=== PATIENT | female | born 1960 | race African-American/Black ===

== ENCOUNTER 2024-11-16 10:53 | Emergency (ER) | payer MEDICAID ==
[~2024-11-16] VITALS: Ht 165.1 cm; Wt 66.0 kg
[2024-11-16 10:54] VITALS: BP 118/72; PULSE 74; RESP 16; TEMP 98.7; O2SAT 96
[2024-11-16 11:45] LABS: BASOPHILS % 0.8 % (0.0-2.0); EOSINOPHILS % 0.5 % (0.0-5.0); HEMATOCRIT. 35.2 % (36.0-48.0); HEMOGLOBIN. 12.2 g/dL (12.0-16.0); LYMPHOCYTES % 40.6 % (20.0-50.0); MEAN CORPUSCULAR HEMOGLOBIN 31.5 pg (28.0-32.0); MEAN CORPUSCULAR HGB CONC 34.7 g/dL (31.0-37.0); MEAN CORPUSCULAR VOLUME 90.7 fL (81.0-99.0); MEAN PLATELET VOLUME 7.5 fl (7.4-10.4); MONOCYTES % 10.9 % (2.0-8.0); NEUTROPHILS % 47.2 % (40.0-76.0); PLATELET 247 x1000/uL (130-400); RED BLOOD CELL COUNT 3.88 mill/uL (4.2-5.4); RED CELL DISTRIBUTION WIDTH 14.7 % (11.6-14.6); WHITE BLOOD COUNT 5.8 x1000/uL (4.5-11.0)
[2024-11-16 12:00] LABS: CHLORIDE 93 mEq/L (98-107); SODIUM 136 mEq/L (136-145)
[2024-11-16 12:01] LABS: CALCIUM 10.9 mg/dL (8.7-10.4); CARBON DIOXIDE 33 mEq/L (21-32)
[2024-11-16 12:06] LABS: CREATININE 1.9 mg/dL (0.6-1.0); GLUCOSE 121 mg/dL (70-105); UREA NITROGEN BLOOD 29 mg/dL (9-23)
[2024-11-16 12:08] LABS: TROPONIN I HIGH SENSITIVITY 17 ng/L (3.0-34)
[2024-11-16 12:34] LABS: POTASSIUM 2.4 mEq/L (3.5-5.1)
[2024-11-16] MEDS ORDERED: POTASSIUM CHLORIDE 30 MEQ in DEXT 5%/0.9% NACL 985 ML IV SCH (12:45)
[2024-11-16] MEDS ORDERED: POTASSIUM CHLORIDE 20MEQ TABLET SR PO SCH (12:45)
== END 2024-11-16 12:56 | disposition left against medical advice (07) ==
LOC: ER 10:53
DX: R55 Syncope and collapse (principal); E87.6 Hypokalemia; N17.9 Acute kidney failure, unspecified; I10 Essential (primary) hypertension; E11.9 Type 2 diabetes mellitus without complications; E78.00 Pure hypercholesterolemia, unspecified
CPT/HCPCS: 36415; 71045; 80048; 83880; 84484; 85025; 99284